=== PATIENT | female | born 1940 | race African-American/Black ===

== ENCOUNTER 2017-03-22 05:47 | Emergency (ER) | payer MEDICAID, MEDICARE | END 2017-03-22 06:30 | disposition home or self-care (01) | LOC: BURERS 05:47 | DX: I10 Essential (primary) hypertension (principal); E78.5 Hyperlipidemia, unspecified; I25.2 Old myocardial infarction; E11.9 Type 2 diabetes mellitus without complications; K21.9 Gastro-esophageal reflux disease without esophagitis; M19.90 Unspecified osteoarthritis, unspecified site; F17.220 Nicotine dependence, chewing tobacco, uncomplicated; Z79.84 Long term (current) use of oral hypoglycemic drugs; Z79.899 Other long term (current) drug therapy; Z79.4 Long term (current) use of insulin | CPT/HCPCS: 36416; 93005 ==

== ENCOUNTER 2018-07-25 14:18 | Emergency (ER) | payer MEDICARE ==
[2018-07-25] MEDS ORDERED: Ibuprofen 800 MG TAB ONE (14:56)
--- NOTE | 2018-07-25 18:00 | RAD ---
RIGHT HIP TWO VIEWS: 07/25/18 No fracture or areas of bony destruction was seen. The joint space is normal in width. Osteophytes ar e really very minimal. Femoral artery calcifications are evident. The adjacent pubic ring appeared in tact. IMPRESSION: No acute bony findings. POS: HOME
--- NOTE | 2018-07-25 18:01 | RAD ---
LEFT SHOULDER THREE VIEWS: 07/25/18 No fracture, dislocation, or AC joint widening was seen. There is no periarticular calcification. The re was a little bony spurring along the inferior lip of the glenoid fossa. Sometimes this can signify prior dislocations. IMPRESSION: No acute bony findings. See above. POS: HOME
== END 2018-07-25 15:50 | disposition home or self-care (01) ==
LOC: BURERS 14:18
DX: M16.11 Unilateral primary osteoarthritis, right hip (principal); M25.512 Pain in left shoulder; I25.2 Old myocardial infarction; E11.9 Type 2 diabetes mellitus without complications; Z79.4 Long term (current) use of insulin; K21.9 Gastro-esophageal reflux disease without esophagitis; E78.5 Hyperlipidemia, unspecified; I10 Essential (primary) hypertension; Z86.73 Personal history of transient ischemic attack (TIA), and cerebral infarction without residual deficits; F17.220 Nicotine dependence, chewing tobacco, uncomplicated; Z79.899 Other long term (current) drug therapy